=== PATIENT | female | born 1965 | race Caucasian/White ===

== ENCOUNTER → 2019-03-26 09:26 | Outpatient (POV) | payer OTHER, SELFPAY | PROVIDERS: Visit Provider Otolaryngology | DX: Z00.00 Encounter for general adult medical examination without abnormal findings (principal) ==

== ENCOUNTER 2025-03-24 10:39 | Outpatient (CLI) | payer BC, SELFPAY ==
--- NOTE | 2025-03-24 10:49 | CA_ITS ---
FINAL REPORT TECHNIQUE: Right lower extremity venous duplex was performed with augmentation and compression. CLINICAL HISTORY: PAIN RIGHT CALF WHEN PATIENT SQUATS COMPARISON: None FINDINGS: Proper flow is seen throughout the right lower extremity deep venous system. There is no evidence of deep venous thrombosis. IMPRESSION: no deep venous thrombosis in the right lower extremity. Reviewed, Interpreted and Dictated by Markell Jordan MD Transcribed by Melinda Mayfield Authenticated and [facility]
== END 2025-03-24 23:59 | disposition home or self-care (01) ==
LOC: RT 10:39
PROVIDERS: PCP Nurse Practitioner; Visit Provider Nurse Practitioner
DX: M79.604 Pain in right leg (principal); R60.9 Edema, unspecified
CPT/HCPCS: 93971

== ENCOUNTER 2025-04-24 18:35 | Emergency (ER) | payer BC, SELFPAY ==
--- OUTSIDE RECORDS SUMMARY | 2025-04-22 13:59 | XMS_ITS | Encounter Summary ---
Author Organization [employer] ([place], [place], [place], [place]) Address [address] [place] [address] Care Team Providers Care Dispatcher Ship Pilot Name Role Phone Lanie Neville APRN Primary Care Provider [phone] Reason for Referral * Mammography (Routine) - Closed Specialty Diagnoses / Procedures Referred By Yenifer pennington Referred To Contact Radiology Diagnoses Visit for screening mammogram Procedures MM digital mammo screen with bhavna bilateral Lanie Neville APRN [address] [place] [address] Phone: tel: fax: [facility] Breast [address] [facility] [address] [place] [phone] Phone: tel: fax: Referral ID Status Reason Start Date Expiration Date Visits Re quested Visits Authorized [id number] Closed 04/16/2025 04/16/2026 1 1 Reason for Visit * Mammography (Routine) - Closed Specialty Diagnoses / Procedures Referred By Yenifer pennington Referred To Contact Radiology Diagnoses Visit for screening mammogram Procedures MM digital mammo screen with bhavna bilateral Lanie Neville APRN [address] [place] [address] Phone: tel: fax: [facility] Breast [address] [facility] [address] [place] [phone] Phone: tel: fax: Referral ID Status Reason Start Date Expiration Date Visits Re quested Visits Authorized [id number] Closed 04/16/2025 04/16/2026 1 1 Encounter Details Date Type Department Care Team (Latest Contact Info) Description 04/22/2025 1:59 PM EDT - 04/22/2025 11:59 PM EDT Hospital Encounter [facility] Breast Imaging [address] [facility] [address] [place] [address] Lanie Neville APRN [address] [place] [address] Visit for screening mammogram Discharge Disposition: Home or Self Care Social History Tobacco Use Types Packs/Day Years Used Date Smoking Tobacco: Never Assessed Family and Community Support Answer Milton e Recorded Help with Day to Day Activities Not on file 10/27/2023 Feeling Lonely or Isolated Not on file 10/27 Educational Attainment Answer Date Tyrell rded Speak language other than Turkmen at home Not on file 10/27/2023 Want help with school or training Not on file 10/27/2023 Substance Use Answer Date Recorded Used prescription meds for non-medical reasons N ot on file 10/27/2023 Used illegal drugs past 12 months Not on file 10/27/2023 Comments No Sex and Gender Information Value Date Recorded Sex Assigned at Not on file Legal Sex Female 2:34 PM CDT Gender Identity Not on file Sexual Orientation Not on file documented as of this encounter Last Filed Vital Signs Vital Sign Reading Time Taken Comments Blood Pressure - - Pulse - - Temperature - - Respiratory Rate - - Oxygen Saturation - - Inhaled Oxygen Concentration - - Weight 69.9 kg (154 lb) 04/22/2025 2:29 PM EDT Height 160 cm (5' 3 ) 04/22/2025 2:29 PM EDT Body Mass Index 27.28 04/22/2025 2:29 PM EDT documented in this encounter Plan of Treatment Upcoming Encounters Date Type Department Care Team (Late st Contact Info) Description 04/23/2026 11:00 AM EDT Appointment [facility] Breast Care [address] [facility] [address] [place] [address] Bambi Espinoza MD [address] [facility] [address] [place] [id number] documented as of this encounter Procedures Procedure Name Priority Date/Time Associated Diagnosis Comments MM DIGITAL MAMMO SCREEN WITH BHAVNA BILATERAL Routine 04/22/2025 2:31 PM EDT Visit for screening mammogram documented in this encounter Results * MM digital mammo screen with bhavna bilateral (04/22/2025 2:31 PM EDT) Anatomical Region Laterality Modality Breast Bilateral Mammography 04/22/2025 5:49 PM EDT Impressions 04/22/2025 5:52 PM EDT No mammographic evidence of malignancy. BI-RADS CATEGORY 2: BENIGN FINDING(S). RECOMMENDED FOLLOW-UP: Annual mammography. A letter including results and recommendations was sent to the patient. Density notification was included for patients with pattern 3 or 4 breast tissue. Patient information was entered into a reminder system with a target due date for the next mammogram. NOTES: Mammography does not detect approximately 10-15% of breast cancers. Physical examination of the breasts by a physician and regular monthly breast self examinations are integral parts of breast cancer screening. A normal mammogram does not exclude breast cancer if there is an abnormal finding on physical examination. When clinically indicated, a biopsy should not be postponed because of a normal mammogram report. Narrative 04/22/2025 5:52 PM EDT BILATERAL SCREENING DIGITAL MAMMOGRAPHY CLINICAL INDICATION: Routine screening. TECHNIQUE: Bilateral CC and MLO views were obtained with digital acquisitions with 3D tomosynthesis. The study was read with the assistance of CAD. COMPARISON: Exams dating back to 2020. DENSITY: There are scattered areas of fibroglandular density. FINDINGS: There are no spiculated masses, areas of distortion or suspicious calcifications. Small nodule in the right upper outer quadrant has decreased in size compatible with benign intramammary lymph node. [facility] IM MAMMOGRAPHY ORDERABLES Fi nal Result documented in this encounter Visit Diagnoses Diagnosis Visit for screening mammogram documented in this encounter Care Teams Dispatcher Ship Pilot Relationship Specialty Start Date End Date Lanie Neville, EDGE PLUGGER [address] [place] [address] PCP - General Nurse Practitioner Women's Health 04/07/23 documented as of this encounter
[2025-04-24 18:38] VITALS: BP 168/65; PULSE 59; RESP 18; TEMP 36.6; O2SAT 99; BMI 28.1
--- NOTE | 2025-04-24 18:45 | XR_ITS ---
PROCEDURE INFORMATION: Exam: XR Right Hand Exam date and time: 04/24/2025 6:54 PM Age: 59 years old Clinical indication: Injury or trauma; Other: Cut; Hand; Right; Injury details: Laceration between thumb and finger, posterior aspect. Bracelet unable to be removed TECHNIQUE: Imaging protocol: Radiologic exam of the right hand. Views: 3 or more views. COMPARISON: No relevant prior studies available. FINDINGS: Bones/joints: Mild degenerative changes of the triscaphe joint, with mild joint space narrowing and minimal osteophyte formation. No acute fracture or dislocation. Soft tissues: Normal. IMPRESSION: No acute fracture or dislocation.
--- NOTE | 2025-04-24 18:46 | ED_ITS ---
<Statement entered by Justine Peña DO - 04/24/25 20:05> I was consulted by the SHANE, and we discussed the complexity of the problems being addressed. I approved the treatment and management plan for this patient's care in the emergency department, thus performing a substantive portion of the medical decision making. Justine Peña DO Discharge Plan Disposition Patient Disposition: Home, Self-Care Condition: Good Referrals Follow up/Referrals: Madison Eaton APRN [Primary Care Provider, Medical] - See instructions Activity Restrictions/Add. Instructions Additional Instructions/Restrictions: Keep area clean and dry. Keep covered if you are out in public. At home just protect area as best you can have sutures removed in 7 to 10 days. Clinical Impressions Clinical Impression: Laceration Instructions Patient Instructions: DI for Laceration Repair Print Language Print Language: Comoran Discharge ED Provider: Justine Peña General Adult HPI General Chief complaint: Wound/Laceration Stated complaint: AO 04/24/25 1600 Laceration right thumb Time Seen by Provider: 04/24/25 18:42 Mode of Arrival: Ambulatory Source of Information: Patient Description of Symptoms (Recalled from ER Triage Doc. by RN): Pt cut finger while attempting to make a bunk bed. Has a cut to right hand. Needs t-dap History of Present Illness HPI narrative: 59-year-old female presents to the ED today after trying to make a bed and cut her hand. She has not had a updated tetanus. She has controlled bleeding. She has good range of motion. No other injury noted. Related Data Allergies Allergy/AdvReac Type Severity Reaction Status Date / Time No Known Allergies Allergy Verified 04/24/25 18:40 [facility] Disclaimer: The information contained in this section may have been updated after the patient was seen, as this information can be updated by other users. Social History Smoking Status: Never smoker alcohol intake: former current occupational status: other Travel in the last 8 weeks?: None ROS Obtained: Yes Systems reviewed as appropriate & no additional complaints except as documented Constitutional Constitutional: Reports as per HPI Physical Exam General General appearance: alert and in no apparent distress Head Head exam: normocephalic Eye Eye exam: Present PERRL and EOMI ENT ENT exam: Present normal oropharynx and mucous membranes moist Neck Neck exam: Present full ROM and trachea midline Respiratory Respiratory exam: Present normal lung sounds bilaterally Cardiovascular Cardiovascular exam: Present regular rate, normal rhythm, normal heart sounds, +S1 and +S2 Extremities Exam Extremities exam: Present normal inspection, full ROM and normal capillary refill Neurological Exam Neurological exam: Present alert, oriented X3 and normal gait Skin Skin exam: Present warm, dry and erythema (Open laceration to right hand) Medical Decision Making Medical Records Screening: Per USPSTF and CDC recommendations, given the prevalence of disease in our region, it is our hospital?s policy to screen for HIV and viral Hepatitis for all patients aged 18 and over and those with ongoing risk factors. Jose Inquiry Pt receiving controlled substance: No Vital Signs: 04/24/25 18:38 04/24/25 19:28 Temperature 98 F 97.9 F Temperature Source Oral Oral Pulse Rate 74 Pulse Rate [Right] 59 L Respiratory Rate 18 16 Blood Pressure 120/74 Blood Pressure [Right Arm] 168/65 H Blood Pressure Mean [Right Arm] 99 Blood Pressure Source Automatic Cuff Blood Pressure Source [Right Arm] Automatic Cuff Blood Pressure Position Supine Blood Pressure Position [Right Arm] Sitting 02 Sat by Pulse Oximetry 99 Oxygen Delivery Method Room Air Room Air Orders (Tests/Meds): ED MEDICATIONS Discontinued Medications Generic Name Dose Route Start Last Admin Trade Name Freq PRN Reason Stop Dose Admin Tetanus/Reduced Diphtheria/Acell Pertussis 0.5 ml 04/24/25 18:43 04/24/25 18:51 Tet/Diphth/Pert-Adult 0.5ml Syringe IM 04/24/25 18:44 0.5 ml .ONCE ONE Administration ORDERS Category Date Time Status Hand XR right minimum 3 views [XR hand RT min 3V] Stat Exams 04/24/25 18:45 Taken Medical Decision Narrative: patient is a 59-year-old female presenting to the emergency department for evaluation of laceration to right hand. Patient is hemodynamically stable and nontoxic-appearing upon arrival, afebrile. Differential diagnosis includes laceration. Workup will be conducted with specific imaging. Specific imaging read by myself is negative. Formal image has not been read by radiology. Patient's laceration repaired by myself and DHARA Mayorga student. 7 sutures placed after wound being irrigated. Patient is safe for discharge home she was given instructions for the wound. Procedures Laceration Laceration 1: Site: hand Side (If applicable): right Size (cm): 4 Description: linear and flap Depth: simple, single layer Local Anesthetic: lidocaine 2% Amount of anesthesia used (mL): 8 Pre-repair: irrigated extensively Skin layer closed with: nylon Size (cm): 3-0 Number of sutures: 7 Critical Care Critical Care Time Critical Care Time: No
--- OUTSIDE RECORDS SUMMARY | 2025-04-24 18:46 | XMS_ITS | Referral Summary ---
Author Organization [employer] ([place], [place], [place], [place]) Address [address] [place] [address] Care Team Providers Care Laminated Plastics Assembler And Gluer Name Role Phone Lanie Neville APRN Primary Care Provider [phone] Encounters Date Type Department Care Team Description 04/22/2025 Outside Orders [facility] Central Scheduling [address] [place] [address] Bambi Espinoza MD Visit for screening mammogram (Primary Dx) 04/22/2025 1:59 PM EDT - 04/22/2025 11:59 PM EDT Hospital Encounter [facility] Breast Imaging [address] [facility] [address] [place] [address] Lanie Neville APRN Visit for screening mammogram Discharge Disposition: Home or Self Care from Last 3 Months Social History Tobacco Use Types Packs/Day Years Used Date Smoking Tobacco: Never Assessed Family and Community Support Answer Milton e Recorded Help with Day to Day Activities Not on file 10/27/2023 Feeling Lonely or Isolated Not on file 10/27 Educational Attainment Answer Date Tyrell rded Speak language other than Scottish at home Not on file 10/27/2023 Want [...] on file Sexual Orientation Not on file Last Filed Vital Signs Vital Sign Reading Time Taken Comments Blood Pressure - - Pulse - - Temperature - - Respiratory Rate - - Oxygen Saturation - - Inhaled Oxygen Concentration - - Weight 69.9 kg (154 lb) 04/22/2025 2:29 PM EDT Height 160 cm (5' 3 ) 04/22/2025 2:29 PM EDT Body Mass Index 27.28 04/22/2025 2:29 PM EDT Plan of Treatment Upcoming Encounters Date Type Department Care Team (Late st Contact Info) Description 04/23/2026 11:00 AM EDT Appointment [address] [place] [address] Bambi Espinoza MD [address] [facility] [address] [place] [address] Procedures Procedure Name Priority Date/Time Associated Diagnosis Comments MM DIGITAL MAMMO SCREEN WITH BHAVNA BILATERAL Routine 04/22/2025 2:31 PM EDT Visit for screening mammogram from Last 3 Months Results * MM digital mammo screen with [...] size compatible with benign intramammary lymph node. Lanie Neville MATERIALS ASSISTANT IM MAMMOGRAPHY ORDERABLES Fi nal Result from Last 3 Months Insurance BLUE CROSS/BLUE SHIELD Care Teams Laminated Plastics Assembler And Gluer Relationship Specialty Start Date End Date Lanie Neville APRN [address] [address] PCP - General Nurse Practitioner Women's Health 04/07/23
--- OUTSIDE RECORDS SUMMARY | 2025-04-24 18:46 | XMS_ITS | Clinical Summary ---
Author Organization [employer] ([place], [place], [place], [place]) Address [address] [place] [address] Care Team Providers Care Multiskill Operator Name Role Phone Lanie Neville APRN Primary Care Provider [phone] Encounters Date Type Department Care Team Description 04/22/2025 1:59 PM EDT - 04/22/2025 11:59 PM EDT Hospital Encounter [facility] Breast Imaging [address] [facility] [address] [place] [address] Lanie Neville APRN Visit for screening mammogram Discharge Disposition: Home or Self Care 04/22/2025 Outside Orders [facility] Central Scheduling [address] [place] [address] Bambi Espinoza MD Visit for screening mammogram (Primary Dx) from Last 3 Months Family History Medical History Relation Name Comments Breast cancer Neg Hx Ovarian cancer Neg Hx Social History Tobacco Use Types Packs/Day Years Used Date Smoking Tobacco: Never Assessed Family and Community Support Answer Milton e Recorded Help with Day to Day Activities Not on file 10/27/2023 Feeling Lonely or Isolated Not on file 10/27 Educational Attainment Answer Date Tyrell rded Speak language other than Chilean at home Not on file 10/27/2023 Want [...] Info) Description 04/23/2026 11:00 AM EDT Appointment [facility] [address] [facility] [address] [place] [address] Bambi Espinoza MD [address] [facility] [address] [place] [address] Health Maintenance Due Date Last Done Comments CT Colonography 1963 Colonoscopy 1963 Colorectal Cancer Screening 1963 FOBT/FIT 1963 Fit-DNA (Cologuard) 1963 Sigmoidoscopy 1963 Depression Screening (12+) 1975 Tobacco Cessation Counseling and Screening (12+) 1975 HIV Screening 1978 Hepatitis C Screening 1981 DTAP/TDAP/TD VACCINES (1 - Tdap) 1982 Pap Smear 1984 Lipid Panel 2008 Pneumococcal 50+ years (1 of 1 - PCV) 2013 Shingles Vaccine (Zoster) (1 of 2) 2013 COVID-19 VACCINE (4 - 2023-2 5 season) 2024 08/14/2021, 11/27/2020, 10/29/2020 Influenza Vaccine (#1) 2025 Breast Cancer Screening 04/22/2027 04/22/20 25, 04/10/2024, 04/07/2023, Additional history exists Respiratory Syncytial Virus (RSV) Adult or (1 - 1-dose 75+ series) 2038 Procedures Procedure Name Priority Date/Time Associated Diagnosis [...] size compatible with benign intramammary lymph node. [facility] MAMMOGRAPHY ORDERABLES Fi nal Result from Last 3 Months Insurance BLUE CROSS/BLUE SHIELD Care Teams Multiskill Operator Relationship Specialty Start Date End Date [facility] DIRECTOR OF HOTEL OPERATIONS [address] [place] [address] PCP - General Nurse Practitioner Women's Health 04/07/23
--- OUTSIDE RECORDS SUMMARY | 2025-04-24 18:46 | XMS_ITS | Encounter Summary ---
Author Organization [employer] ([place], [place], [place], [place]) Address [address] [place] [address] Care Team Providers Care Desktop Support Consultant Name Role Phone Lanie Neville DERIK Primary Care Provider [phone] Reason for Referral * Mammography (Routine) - Authorized Specialty Diagnoses / Procedures Referred By Contac t Referred To Contact Radiology Diagnoses Visit for screening mammogram Procedures MM digital mammo [place] [address] [place] [address] Phone: tel: fax: Referral ID Status Reason Start Date Expiration Date V isits Requested Visits Authorized [id number] Authorized 04/23/2026 04/23/2027 1 1 Encounter Details Date Type Department Care Team (Late st Contact Info) Description 04/22/2025 Outside Orders [facility] Central Scheduling [address] [place] [address] Bambi Espinoza MD [address] [place] [address] Visit for screening mammogram (Primary Dx) Social History Tobacco Use Types Packs/Day Years Used Date Smoking Tobacco: Never Assessed Family and Community Support Answer Milton e Recorded Help with Day to Day Activities Not on file 10/27/2023 Feeling Lonely or Isolated Not on file 10/27 Educational Attainment Answer Date Tyrell rded Speak language other than Slovenian at home Not on file 10/27/2023 Want [...] on file documented as of this encounter Plan of Treatment Upcoming Encounters Date Type Department Care Team (Late st Contact Info) Description 04/23/2026 11:00 AM EDT Appointment [facility] Breast [facility] [address] [facility] [address] [place] [address] Bambi Espinoza MD [address] [facility] [address] [place] [address] Scheduled Orders Name Type Priority Associated Diagnoses Orde r Schedule MM digital mammo screen with devonte bilateral Imaging Routine Visit for screening mammogram Expected: 04/23/2026, Expires: 10/23/2026 documented as of this encounter Visit Diagnoses Diagnosis Visit for screening mammogram- Primary documented in this encounter Care Teams Desktop Support Consultant Relationship Specialty Start Date End Date Lanie Nevlile APRN [address] [facility] [address] [place] [id number] PCP - General Nurse Practitioner Women's Health 04/07/23 documented as of this encounter
[2025-04-24] MEDS: TET/DIPHTH/PERT-ADULT 0.5ML SYRINGE 0.5 ML IM (18:51)
[2025-04-24 19:28] VITALS: BP 120/74; PULSE 74; RESP 16; TEMP 36.6; O2SAT 98
== END 2025-04-24 19:31 | disposition home or self-care (01) ==
PROVIDERS: Emergency Provider Emergency Medicine; PCP Nurse Practitioner
DX: S61.001A Unspecified open wound of right thumb without damage to nail, initial encounter (principal)
CPT/HCPCS: 12002; 73130; 90471; 90715; 99283

== ENCOUNTER 2025-08-06 10:00 | Outpatient (RCR) | payer BC, SELFPAY | END 2025-08-06 23:59 | disposition home or self-care (01) | LOC: PT.CARL 10:00 | PROVIDERS: Visit Provider Nurse Practitioner | DX: M25.561 Pain in right knee (principal) | CPT/HCPCS: 97110; 97161; 97530 ==

== ENCOUNTER 2025-09-03 07:00 | Outpatient (RCR) | payer BC, SELFPAY | END 2025-09-03 23:59 | disposition home or self-care (01) | LOC: PT.CARL 07:00 | PROVIDERS: Visit Provider Nurse Practitioner | DX: M25.561 Pain in right knee (principal) | CPT/HCPCS: 97110; 97530 ==